=== PATIENT | male | born 2000 | race American Indian/Alaskan Native ===

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

== ENCOUNTER 2021-09-21 21:18 | Emergency (ER) | payer SELFPAY ==
[2021-09-21] MEDS ORDERED: dexAMETHasone 4 MG/ML VIAL IM ONE (21:33)
[2021-09-21] MEDS ORDERED: PENICILLIN G BENZATHINE 1.2 MILLION UNIT/2 ML INJ IM STA (21:35)
[2021-09-21 21:37] VITALS: BP 145/95
--- NOTE | 2021-09-21 21:41 | Emergency Department Report ---
ED ENT HPI - General Chief complaint: Sore Throat Stated complaint: THROATPAIN/SINUS PRESSURE Time Seen by Provider: 09/21/21 21:33 Source: patient Mode of arrival: Ambulatory Limitations: No Limitations - History of Present Illness MD complaint: sore throat -: Gradual, days(s) (4) Location: throat Severity: mild, moderate Quality: constant Consistency: constant Improves with: none Worsens with: swallowing, eating Associated Symptoms: sore throat. denies: cough, gum swelling, tinnitus, hearing loss, discharge from ear, rhinorrhea - Related Data Allergies Allergy/AdvReac Type Severity Reaction Status Date / Time guaifenesin [From Robitussin] Allergy Bleeding Verified 08/08/19 17:21 ED Dental HPI - General Chief complaint: Sore Throat Stated complaint: THROATPAIN/SINUS PRESSURE Time Seen by Provider: 09/21/21 21:33 Source: patient Mode of arrival: Ambulatory Limitations: No Limitations - Related Data Allergies Allergy/AdvReac Type Severity Reaction Status Date / Time guaifenesin [From Robitussin] Allergy Bleeding Verified 08/08/19 17:21 ED Review of Systems ROS: Stated complaint: THROATPAIN/SINUS PRESSURE Other details as noted in HPI Comment: All other systems reviewed and negative Constitutional: denies: chills, fever Eyes: denies: eye pain, eye discharge, vision change ENT: throat pain. denies: ear pain Respiratory: denies: cough, shortness of breath, wheezing Cardiovascular: denies: chest pain, palpitations Endocrine: no symptoms reported Gastrointestinal: denies: abdominal pain, nausea, diarrhea Genitourinary: denies: urgency, dysuria Musculoskeletal: denies: back pain, joint swelling, arthralgia Skin: denies: rash, lesions Neurological: denies: headache, weakness, paresthesias Psychiatric: denies: anxiety, depression Hematological/Lymphatic: denies: easy bleeding, easy bruising ED Past Medical Hx - Past Medical History Previous Medical History?: No - Surgical History Past Surgical History?: Yes Additional Surgical History: left wrist surgery - Social History Smoking Status: Current Every Day Smoker Substance Use Type: Alcohol ED Physical Exam - General Limitations: No Limitations General appearance: alert, in no apparent distress - Head Head exam: Present: atraumatic, normocephalic - Eye Eye exam: Present: normal appearance - ENT ENT exam: Present: mucous membranes moist, other (Pharynx red and swollen with some erythema to the posterior pharynx swelling to the right is slightly greater on the left. Airway is patent no drooling voice not muffled) - Neck Neck exam: Present: normal inspection, lymphadenopathy - Respiratory Respiratory exam: Present: normal lung sounds bilaterally. Absent: respiratory distress - Cardiovascular Cardiovascular Exam: Present: regular rate, normal rhythm. Absent: systolic mu rmur, diastolic murmur, rubs, gallop - GI/Abdominal GI/Abdominal exam: Present: soft, normal bowel sounds - Rectal Rectal exam: Present: deferred - Extremities Exam Extremities exam: Present: normal inspection - Back Exam Back exam: Present: normal inspection - Neurological Exam Neurological exam: Present: alert, oriented X3 - Psychiatric Psychiatric exam: Present: normal affect, normal mood - Skin Skin exam: Present: warm, dry, intact, normal color. Absent: rash ED Medical Decision Making - Medical Decision Making 21-year-old male with no history of any compromised nontoxic appearance patient is euvolemic with no trismus no airway compromise unable to tolerate p.o. given history and examination low suspicion for this presentation being caused by peritonsillar abscess, Faustino, bacterial tracheitis, acute HIV, epiglottitis, retropharyngeal abscess. Critical care attestation.: If time is entered above; I have spent that time in minutes in the direct care of this critically ill patient, excluding procedure time. ED Disposition Clinical Impression: Pharyngitis Disposition: HOME / SELF CARE / HOMELESS Is pt being admited?: No Does the pt Need Aspirin: No Condition: Stable Instructions: Pharyngitis, Sore Throat Referrals: [facility] [Provider Group] - 2-3 Days (Please be sure to get your throat recheck in 24 to 48 hours)
== END 2021-09-21 23:32 | disposition home or self-care (01) ==
LOC: ED 21:18
DX: J02.9 Acute pharyngitis, unspecified (principal); Z98.890 Other specified postprocedural states; F17.200 Nicotine dependence, unspecified, uncomplicated; Z88.8 Allergy status to other drugs, medicaments and biological substances
CPT/HCPCS: 96372; 99281; J0561; J1100